=== PATIENT | male | born 1960 | race Caucasian/White ===

== ENCOUNTER 2017-01-04 22:48 | Inpatient (IN) | payer MEDICARE, MEDICAID ==
[~2017-01-04] VITALS: Ht 162.6 cm; Wt 58.5 kg
[2017-01-05] MEDS ORDERED: SODIUM CHLORIDE 0.9% 1,000 ML IV ONE (01:49)
[2017-01-05] MEDS ORDERED: ONDANSETRON HCL 4MG/2ML VIAL IV ONE (02:00)
[2017-01-05] MEDS ORDERED: KETOROLAC 30MG/ML VIAL IV ONE (02:00)
[2017-01-05 02:12] LABS: HEMATOCRIT. 41.3 % (42.0-52.0); HEMOGLOBIN. 13.7 g/dL (14.0-18.0); MEAN CORPUSCULAR HEMOGLOBIN 30.4 pg (28.0-32.0); MEAN CORPUSCULAR VOLUME 91.6 fL (80.0-94.0); MEAN PLATELET VOLUME 7.7 fl (7.4-10.4); PLATELET 249 x1000/uL (130-400); RED BLOOD CELL COUNT 4.51 mill/uL (4.7-6.1); RED CELL DISTRIBUTION WIDTH 14.2 % (11.6-14.6)
[2017-01-05 02:14] LABS: CHLORIDE 107 mEq/L (98-107)
[2017-01-05 02:16] LABS: INR 1.1; PROTHROMBIN TIME 11.9 sec (9.4-11.6)
[2017-01-05 02:22] LABS: CARBON DIOXIDE 28 mEq/L (21-32); ETHANOL BLOOD < 10 mg/dL
[2017-01-05 02:51] LABS: PLATELET ESTIMATE NORMAL
[2017-01-05] MEDS ORDERED: CEFTRIAXONE 2 G PREMIX 50 ML IV NR (03:15)
[2017-01-05] MEDS ORDERED: METRONIDAZOLE 500 MG PREMIX 100 ML IV NR (03:15)
[2017-01-05 03:47] LABS: CLARITY URINE CLEAR (CLEAR); COLOR URINE YELLOW (YELLOW); GLUCOSE URINE NEGATIVE (NEGATIVE); KETONES URINE NEGATIVE (NEGATIVE); LEUKOCYTE ESTERASE URINE 2+ (NEGATIVE); NITRITE URINE POSITIVE (NEGATIVE); OCCULT BLOOD URINE 1+ (NEGATIVE); PH URINE 5.5 (4.5-8.0); PROTEIN URINE TRACE (NEGATIVE); SPECIFIC GRAVITY URINE 1.017 (1.005-1.030); UROBILINOGEN URINE 0.2 E.U./dL (0.2-1.0)
[2017-01-05 04:12] LABS: *AMPHETAMINES SCREEN URINE NEGATIVE (NEGATIVE); *BARBITURATES SCREEN URINE NEGATIVE (NEGATIVE); *BENZODIAZEPINES SCREEN URINE NEGATIVE (NEGATIVE); *COCAINE SCREEN URINE PRESUMTIVE POSITIVE (NEGATIVE); CANNABINOID URINE SCREEN NEGATIVE (NEGATIVE); METHADONE URINE SCREEN NEGATIVE (NEGATIVE); OPIATES URINE SCREEN NEGATIVE (NEGATIVE); PHENCYCLIDINE URINE SCREEN NEGATIVE (NEGATIVE)
[2017-01-05] MEDS ORDERED: MORPHINE SULFATE 4 MG/ML CPJ (NOT FOR IM USE) IV NR (05:30)
[2017-01-05 08:53] VITALS: BP 122/80
[2017-01-05] MEDS ORDERED: CLONIDINE 0.1MG TABLET PO PRN (09:30)
[2017-01-05] MEDS ORDERED: NITROGLYCERIN 0.4MG TABLET SL SL PRN (09:30)
[2017-01-05] MEDS ORDERED: DOCUSATE SODIUM 100MG CAPSULE PO PRN (09:30)
[2017-01-05] MEDS ORDERED: LORAZEPAM 2MG/ML CPJ IV PRN (09:30)
[2017-01-05] MEDS ORDERED: NA PHOS,M-B/NA PHOS,DI-BA ENEMA 118ML PR PRN (09:30)
[2017-01-05] MEDS ORDERED: MAGNESIUM/ALUMINUM HYDROXIDE/SIMETHICONE 30ML UDC PO PRN (09:30)
[2017-01-05] MEDS ORDERED: ONDANSETRON HCL 4MG/2ML VIAL IV PRN (09:30)
[2017-01-05] MEDS ORDERED: DIPHENHYDRAMINE 50MG/ML VIAL IV PRN (09:30)
[2017-01-05] MEDS ORDERED: GUAIFENESIN 200MG/10ML SUGAR FREE UDC PO PRN (09:30)
[2017-01-05] MEDS ORDERED: IPRATROPIUM/ALBUTEROL 0.5-3(2.5)MG/3ML NEB INH PRN (09:30)
[2017-01-05 12:00] VITALS: BP 112/76
[2017-01-05] MEDS ORDERED: PNEUMOCOCCAL 23-VAL P-SAC VAC 0.5 ML IM ONE (12:30)
[2017-01-05] MEDS: LEVOFLOXACIN 500MG PREMIX 100 ML IV SCH (14:24)
[2017-01-05] MEDS: SODIUM CHLORIDE 0.9% 1,000 ML IV SCH ×2 (14:24→19:38)
[2017-01-05] MEDS: ENOXAPARIN 40MG/0.4ML SYR SUBCUT SCH (14:26)
[2017-01-05] MEDS: MORPHINE SULFATE 4 MG/ML CPJ (NOT FOR IM USE) IV PRN ×2 (14:27→17:39)
[2017-01-05 16:00] VITALS: BP 113/81
[2017-01-05 20:00] VITALS: BP 110/68
[2017-01-05] MEDS: TAMSULOSIN HCL 0.4MG SR CAPSULE PO SCH (20:33)
[2017-01-05] MEDS: ASCORBIC ACID 500 MG TABLET PO SCH (20:33)
[2017-01-05] MEDS: ZOLPIDEM TARTRATE 5MG TABLET PO PRN (20:34)
[2017-01-06] VITALS: BP 105/71
[2017-01-06 04:00] VITALS: BP 101/68
[2017-01-06] MEDS: CEFTRIAXONE 1 G PREMIX 50 ML IV SCH (05:40)
[2017-01-06] MEDS: SODIUM CHLORIDE 0.9% 1,000 ML IV SCH ×2 (05:40→14:41)
[2017-01-06 08:00] VITALS: BP 104/72
[2017-01-06] MEDS: ASCORBIC ACID 500 MG TABLET PO SCH ×2 (08:23→20:13)
[2017-01-06] MEDS: TAMSULOSIN HCL 0.4MG SR CAPSULE PO SCH ×2 (08:23→20:13)
[2017-01-06] MEDS: MORPHINE SULFATE 4 MG/ML CPJ (NOT FOR IM USE) IV PRN ×4 (08:23→22:38)
[2017-01-06] MEDS: DUTASTERIDE 0.5MG CAPSULE PO SCH (08:23)
[2017-01-06] MEDS: ACETAMINOPHEN 325MG TABLET PO PRN ×2 (08:24→20:13)
[2017-01-06] MEDS: ENOXAPARIN 40MG/0.4ML SYR SUBCUT SCH (10:43)
[2017-01-06] MEDS: LEVOFLOXACIN 500MG PREMIX 100 ML IV SCH (10:43)
[2017-01-06 12:00] VITALS: BP 144/48
[2017-01-06 14:01] LABS: HEMATOCRIT. 35.8 % (42.0-52.0); HEMOGLOBIN. 11.9 g/dL (14.0-18.0); MEAN CORPUSCULAR HEMOGLOBIN 30.3 pg (28.0-32.0); MEAN CORPUSCULAR VOLUME 90.9 fL (80.0-94.0); MEAN PLATELET VOLUME 8.5 fl (7.4-10.4); PLATELET 230 x1000/uL (130-400); RED BLOOD CELL COUNT 3.93 mill/uL (4.7-6.1); RED CELL DISTRIBUTION WIDTH 14.5 % (11.6-14.6)
[2017-01-06 14:03] LABS: CARBON DIOXIDE 26 mEq/L (21-32); CHLORIDE 104 mEq/L (98-107)
[2017-01-06 16:00] VITALS: BP 107/71
[2017-01-06] MEDS ORDERED: POTASSIUM CHLORIDE 20MEQ TABLET SR PO NR (16:30)
[2017-01-06 20:00] VITALS: BP 110/66
[2017-01-06] MEDS: ZOLPIDEM TARTRATE 5MG TABLET PO PRN (20:13)
[2017-01-06 22:29] LABS: PLATELET ESTIMATE NORMAL
[2017-01-07] VITALS: BP 105/73
[2017-01-07] MEDS: SODIUM CHLORIDE 0.9% 1,000 ML IV SCH ×2 (01:09→14:17)
[2017-01-07 04:00] VITALS: BP 111/76
[2017-01-07] MEDS: CEFTRIAXONE 1 G PREMIX 50 ML IV SCH (05:20)
[2017-01-07 08:00] VITALS: BP 107/69
[2017-01-07] MEDS: ASCORBIC ACID 500 MG TABLET PO SCH ×2 (08:30→20:22)
[2017-01-07] MEDS: DUTASTERIDE 0.5MG CAPSULE PO SCH (08:30)
[2017-01-07] MEDS: TAMSULOSIN HCL 0.4MG SR CAPSULE PO SCH ×2 (08:30→20:23)
[2017-01-07] MEDS: MORPHINE SULFATE 4 MG/ML CPJ (NOT FOR IM USE) IV PRN ×2 (08:31→18:32)
[2017-01-07] MEDS: ACETAMINOPHEN 325MG TABLET PO PRN (08:31)
[2017-01-07] MEDS: LEVOFLOXACIN 500MG PREMIX 100 ML IV SCH (11:03)
[2017-01-07] MEDS: ENOXAPARIN 40MG/0.4ML SYR SUBCUT SCH (11:03)
[2017-01-07 11:17] LABS: HEMOGLOBIN. 11.5 g/dL (14.0-18.0); MEAN CORPUSCULAR HEMOGLOBIN 30.4 pg (28.0-32.0); MEAN CORPUSCULAR VOLUME 90.3 fL (80.0-94.0); MEAN PLATELET VOLUME 8.2 fl (7.4-10.4); PLATELET 250 x1000/uL (130-400); RED BLOOD CELL COUNT 3.77 mill/uL (4.7-6.1); RED CELL DISTRIBUTION WIDTH 14.4 % (11.6-14.6)
[2017-01-07 11:23] LABS: CARBON DIOXIDE 25 mEq/L (21-32); CHLORIDE 105 mEq/L (98-107)
[2017-01-07 12:00] VITALS: BP 102/63
[2017-01-07 13:27] LABS: PLATELET ESTIMATE NORMAL
[2017-01-07 16:00] VITALS: BP 103/57
[2017-01-07 20:00] VITALS: BP 112/74
[2017-01-07] MEDS: ZOLPIDEM TARTRATE 5MG TABLET PO PRN (20:22)
[2017-01-08] MEDS: SODIUM CHLORIDE 0.9% 1,000 ML IV SCH ×3 (00:17→22:01)
[2017-01-08 01:00] VITALS: BP 114/80
[2017-01-08 04:00] VITALS: BP 111/69
[2017-01-08] MEDS: CEFTRIAXONE 1 G PREMIX 50 ML IV SCH (05:19)
[2017-01-08] MEDS: MORPHINE SULFATE 4 MG/ML CPJ (NOT FOR IM USE) IV PRN ×4 (05:23→18:43)
[2017-01-08] MEDS: ENOXAPARIN 40MG/0.4ML SYR SUBCUT SCH (09:36)
[2017-01-08] MEDS: TAMSULOSIN HCL 0.4MG SR CAPSULE PO SCH ×2 (09:36→20:13)
[2017-01-08] MEDS: DUTASTERIDE 0.5MG CAPSULE PO SCH (09:36)
[2017-01-08] MEDS: ASCORBIC ACID 500 MG TABLET PO SCH ×2 (09:44→20:13)
[2017-01-08] MEDS: LEVOFLOXACIN 500MG PREMIX 100 ML IV SCH (12:00)
[2017-01-08 20:00] VITALS: BP 111/71
[2017-01-08] MEDS: ACETAMINOPHEN 325MG TABLET PO PRN (20:14)
[2017-01-08] MEDS: TRAMADOL 50MG TABLET PO PRN (21:03)
[2017-01-08] MEDS: ZOLPIDEM TARTRATE 5MG TABLET PO PRN (21:57)
[2017-01-09] VITALS: BP 123/76
[2017-01-09] MEDS: SODIUM CHLORIDE 0.9% 1,000 ML IV SCH (03:22)
[2017-01-09 04:00] VITALS: BP 119/76
[2017-01-09] MEDS: CEFTRIAXONE 1 G PREMIX 50 ML IV SCH (05:16)
[2017-01-09] MEDS: MORPHINE SULFATE 4 MG/ML CPJ (NOT FOR IM USE) IV PRN (05:17)
[2017-01-09 08:00] VITALS: BP 117/55
[2017-01-09] MEDS: DUTASTERIDE 0.5MG CAPSULE PO SCH (08:25)
[2017-01-09] MEDS: TAMSULOSIN HCL 0.4MG SR CAPSULE PO SCH (08:25)
[2017-01-09] MEDS: TRAMADOL 50MG TABLET PO PRN (08:25)
[2017-01-09] MEDS: ACETAMINOPHEN 325MG TABLET PO PRN (08:26)
[2017-01-09] MEDS: ASCORBIC ACID 500 MG TABLET PO SCH (08:26)
[2017-01-09 10:17] VITALS: BP 115/56
== END 2017-01-09 11:17 | disposition home or self-care (01) | DRG 872 ==
LOC: ER 22:56 → 8WST 01-05 06:17 → ENRESERV 01-05 07:07 → 8WST 01-05 18:17
PROVIDERS: ADMIT Internal Medicine; ATTEND Internal Medicine
DX: A41.9 Sepsis, unspecified organism (principal); I10 Essential (primary) hypertension; N39.0 Urinary tract infection, site not specified; N40.0 Benign prostatic hyperplasia without lower urinary tract symptoms; Z90.49 Acquired absence of other specified parts of digestive tract; Z86.73 Personal history of transient ischemic attack (TIA), and cerebral infarction without residual deficits; R32 Unspecified urinary incontinence
CPT/HCPCS: 36415; 74176; 76870; 80048; 80053; 80305; 81001; 83036; 83605; 83690; 85025; 85610; 87040; 90732; 93306; 93970; 93976; 96361; 96365; 96375; 97162; 99285; G0482; J0696; J1650; J1885; J1956; J2270; J2405; J3490; J7030; A4315

== ENCOUNTER 2017-01-14 11:03 | Emergency (ER) | payer MEDICARE, MEDICAID ==
[~2017-01-14] VITALS: Ht 162.6 cm; Wt 59.0 kg
[2017-01-14] MEDS ORDERED: LEVO250T2 PO (11:12)
[2017-01-14] MEDS ORDERED: TAMS-11 PO (11:12)
[2017-01-14 16:11] VITALS: BP 141/89
== END 2017-01-14 16:30 | disposition home or self-care (01) ==
LOC: ER 11:03
DX: N43.40 Spermatocele of epididymis, unspecified (principal); R03.0 Elevated blood-pressure reading, without diagnosis of hypertension; Z90.89 Acquired absence of other organs; Z86.73 Personal history of transient ischemic attack (TIA), and cerebral infarction without residual deficits
CPT/HCPCS: 99282

== ENCOUNTER 2017-02-08 11:40 | Inpatient (IN) | payer MEDICARE, MEDICAID ==
[~2017-02-08] VITALS: Ht 162.6 cm; Wt 58.5 kg
[~2017-02-08 11:40] MED LIST: LEVO250T2 PO; TAMS-11 PO
[2017-02-08 11:55] VITALS: BP 138/74
[2017-02-08 12:00] VITALS: BP 138/74
[2017-02-08] MEDS ORDERED: IBUP-2030 PO (12:38)
[2017-02-08] MEDS ORDERED: BUPIVACAINE HCL 0.5% (5MG/ML) 50ML ONE (13:31)
[2017-02-08 13:52] LABS: BASOPHILS % 0.4 % (0.0-2.0); EOSINOPHILS % 1.8 % (0.0-5.0); HEMATOCRIT. 36.9 % (42.0-52.0); HEMOGLOBIN. 12.6 g/dL (14.0-18.0); MEAN CORPUSCULAR HEMOGLOBIN 30.7 pg (28.0-32.0); MEAN CORPUSCULAR VOLUME 89.8 fL (80.0-94.0); MEAN PLATELET VOLUME 7.4 fl (7.4-10.4); MONOCYTES % 7.2 % (2.0-8.0); NEUTROPHILS % 58.6 % (40.0-76.0); PLATELET 335 x1000/uL (130-400); RED BLOOD CELL COUNT 4.11 mill/uL (4.7-6.1)
[2017-02-08 13:58] LABS: CARBON DIOXIDE 26 mEq/L (21-32); CHLORIDE 107 mEq/L (98-107)
[2017-02-08] MEDS ORDERED: MIDAZOLAM HCL 2 MG/2 ML VIAL ONE (14:17)
[2017-02-08] MEDS ORDERED: FENTANYL CITRATE/PF 50MCG/ML 2ML VIAL ONE (14:18)
[2017-02-08] MEDS ORDERED: PROPOFOL 200MG/20ML VIAL IV ONE (14:19)
[2017-02-08] MEDS ORDERED: LIDOCAINE HCL 1% 20ML VIAL (Pyxis) INJ ONE (14:19)
[2017-02-08] MEDS ORDERED: SUCCINYLCHOLINE CHLORIDE 200MG/10ML VIAL IV ONE (14:19)
[2017-02-08] MEDS ORDERED: CEFAZOLIN SODIUM 1000MG/VIAL ONE (14:34)
[2017-02-08] MEDS ORDERED: DEXAMETHASONE 4MG/ML 1ML VIAL ONE (14:59)
[2017-02-08] MEDS ORDERED: ONDANSETRON HCL 4MG/2ML VIAL ONE (14:59)
[2017-02-08] MEDS ORDERED: BACITRACIN ZINC 15GM TUBE TOP ONE (15:20)
[2017-02-08] MEDS ORDERED: ONDANSETRON HCL 4MG/2ML VIAL IV PRN (15:45)
[2017-02-08] MEDS ORDERED: MEPERIDINE HCL/PF 25MG/ML CPJ IV PRN (15:45)
[2017-02-08] MEDS ORDERED: SODIUM CHLORIDE 0.9% 1,000 ML IV SCH (16:00)
[2017-02-08] MEDS: HYDROMORPHONE HCL/PF 2MG/ML CPJ IV PRN ×3 (16:25→16:56)
[2017-02-08 18:00] VITALS: BP 138/74
[2017-02-08] MEDS: MORPHINE SULFATE 4 MG/ML CPJ (NOT FOR IM USE) IV PRN ×2 (18:01→22:55)
[2017-02-08 20:00] VITALS: BP 143/86
[2017-02-09] VITALS: BP 147/87
[2017-02-09] MEDS: MORPHINE SULFATE 4 MG/ML CPJ (NOT FOR IM USE) IV PRN ×5 (02:03→21:19)
[2017-02-09 04:00] VITALS: BP 127/84
[2017-02-09 08:00] VITALS: BP 128/78
[2017-02-09 12:00] VITALS: BP 125/78
[2017-02-09] MEDS: LACTATED RINGERS 1,000 ML IV SCH ×2 (12:09→12:11)
[2017-02-09] MEDS: LEVOFLOXACIN 500MG TABLET PO SCH (15:53)
[2017-02-09] MEDS: HYDROCODONE/ACETAMINOPHEN 10/325MG TABLET PO PRN (15:54)
[2017-02-09 16:00] VITALS: BP 127/79
[2017-02-10] VITALS: BP 108/79
[2017-02-10 04:00] VITALS: BP 129/78
[2017-02-10] MEDS: HYDROCODONE/ACETAMINOPHEN 10/325MG TABLET PO PRN (05:06)
[2017-02-10 08:00] VITALS: BP 146/88
[2017-02-10] MEDS: MORPHINE SULFATE 4 MG/ML CPJ (NOT FOR IM USE) IV PRN ×2 (08:32→12:32)
[2017-02-10 12:00] VITALS: BP 114/75
[2017-02-10] MEDS: LEVOFLOXACIN 500MG TABLET PO SCH (12:31)
[2017-02-10 13:22] VITALS: BP 114/75
== END 2017-02-10 13:40 | disposition home health service (06) | DRG 711 ==
LOC: 6EST 11:40
PROVIDERS: ADMIT Urology; ATTEND Urology
PROC: 0VT90ZZ Resection of Right Testis, Open Approach (ICD-10-PCS; principal; 2017-02-08 14:00)
DX: N45.4 Abscess of epididymis or testis (principal); B37.49 Other urogenital candidiasis; N40.0 Benign prostatic hyperplasia without lower urinary tract symptoms; N45.1 Epididymitis; Z86.73 Personal history of transient ischemic attack (TIA), and cerebral infarction without residual deficits; Z87.440 Personal history of urinary (tract) infections
CPT/HCPCS: 36415; 80048; 85025; 87070; 87075; 87077; 87186; 87205; 88305; 93005; C1893; J0330; J0690; J1100; J1170; J2250; J2270; J2405; J2704; J3010; J3490; J7030; J7120; A4315

== ENCOUNTER 2019-09-10 12:09 | Emergency (ER) | payer MEDICARE, MEDICAID ==
[~2019-09-10] VITALS: Ht 160 cm; Wt 62.0 kg
[~2019-09-10 12:09] MED LIST changes: +IBUP-2030 PO
[2019-09-10 12:19] VITALS: BP 139/99
== END 2019-09-10 13:30 | disposition home or self-care (01) ==
LOC: ER 12:09
DX: Z43.6 Encounter for attention to other artificial openings of urinary tract (principal); R32 Unspecified urinary incontinence; R03.0 Elevated blood-pressure reading, without diagnosis of hypertension; Z86.73 Personal history of transient ischemic attack (TIA), and cerebral infarction without residual deficits
CPT/HCPCS: 99282

== ENCOUNTER 2019-09-20 12:35 | Emergency (ER) | payer MEDICARE, MEDICAID ==
[~2019-09-20] VITALS: Ht 160 cm; Wt 61.0 kg
[2019-09-20 12:56] VITALS: BP 146/100
[2019-09-20 14:07] LABS: BASOPHILS % 0.9 % (0.0-2.0); EOSINOPHILS % 1.1 % (0.0-5.0); HEMATOCRIT. 43.5 % (42.0-52.0); HEMOGLOBIN. 14.8 g/dL (14.0-18.0); LYMPHOCYTES % 27.8 % (20.0-50.0); MEAN CORPUSCULAR HEMOGLOBIN 31.8 pg (28.0-32.0); MEAN CORPUSCULAR VOLUME 93.5 fL (80.0-94.0); MEAN PLATELET VOLUME 8.3 fl (7.4-10.4); MONOCYTES % 7.9 % (2.0-8.0); NEUTROPHILS % 62.3 % (40.0-76.0); PLATELET 292 x1000/uL (130-400); RED BLOOD CELL COUNT 4.65 mill/uL (4.7-6.1); RED CELL DISTRIBUTION WIDTH 13.6 % (11.6-14.6)
[2019-09-20 14:12] LABS: CHLORIDE 108 mEq/L (98-107)
== END 2019-09-20 14:10 | disposition left against medical advice (07) ==
LOC: ER 12:35
DX: R33.9 Retention of urine, unspecified (principal); Z46.6 Encounter for fitting and adjustment of urinary device; Z86.73 Personal history of transient ischemic attack (TIA), and cerebral infarction without residual deficits; Z90.49 Acquired absence of other specified parts of digestive tract
CPT/HCPCS: 36415; 80048; 85025; 99283

== ENCOUNTER 2019-10-13 12:54 | Emergency (ER) | payer MEDICARE, MEDICAID ==
[~2019-10-13] VITALS: Ht 167.6 cm; Wt 55.0 kg
[2019-10-13 13:16] VITALS: BP 128/80
== END 2019-10-13 19:24 | disposition left against medical advice (07) ==
LOC: ER 12:54
DX: Z53.21 Procedure and treatment not carried out due to patient leaving prior to being seen by health care provider (principal)

== ENCOUNTER 2022-11-26 16:33 | Emergency (ER) | payer MEDICAID, MEDICARE ==
[~2022-11-26] VITALS: Ht 160 cm; Wt 61.0 kg
[2022-11-26 16:36] VITALS: O2SAT 97
[2022-11-26] MEDS ORDERED: SODIUM CHLORIDE 0.9% 1,000 ML IV ONE (17:00)
[2022-11-26 17:14] LABS: BASOPHILS % 0.5 % (0.0-2.0); HEMATOCRIT. 38.8 % (42.0-52.0); HEMOGLOBIN. 12.9 g/dL (14.0-18.0); LYMPHOCYTES % 20.5 % (20.0-50.0); MEAN CORPUSCULAR HEMOGLOBIN 31.6 pg (28.0-32.0); MEAN CORPUSCULAR HGB CONC 33.2 g/dL (31.0-37.0); MEAN CORPUSCULAR VOLUME 95.2 fL (80.0-94.0); MEAN PLATELET VOLUME 7.4 fl (7.4-10.4); MONOCYTES % 8.6 % (2.0-8.0); NEUTROPHILS % 69.4 % (40.0-76.0); PLATELET 517 x1000/uL (130-400); RED BLOOD CELL COUNT 4.07 mill/uL (4.7-6.1); RED CELL DISTRIBUTION WIDTH 13.9 % (11.6-14.6); WHITE BLOOD COUNT 12.1 x1000/uL (4.5-11.0)
[2022-11-26 17:27] LABS: CHLORIDE 107 mEq/L (98-107); INDEX HEMOLYSI 1 (1-3); INDEX ICTERIC 1 (1-4); INDEX LIPEMIC 1 (1-3); POTASSIUM 3.5 mEq/L (3.5-5.1); SODIUM 135 mEq/L (136-145)
[2022-11-26 17:36] LABS: ALANINE AMINOTRANSFERASE 68 IU/L (13-61); ALBUMIN 3.5 g/dL (3.4-5.0); ASPARTATE AMINOTRANSFERASE 36 IU/L (15-37); BILIRUBIN TOTAL 0.3 mg/dL (0.1-1.0); CALCIUM 8.8 mg/dL (8.5-10.1); CARBON DIOXIDE 26 mEq/L (21-32); GLUCOSE 124 mg/dL (70-105); PROTEIN TOTAL 8.1 g/dL (6.0-8.3); TROPONIN I HIGH SENSITIVITY 5 ng/L (<78); UREA NITROGEN BLOOD 16 mg/dL (7-21)
[2022-11-26 22:00] VITALS: TEMP 98.9
[2022-11-27 06:00] VITALS: BP_SYST 102
[2022-11-27 06:15] VITALS: BP_DIAS 54; PULSE 77; RESP 16
== END 2022-11-27 10:00 | disposition home or self-care (01) ==
LOC: ER 16:33
DX: R42 Dizziness and giddiness (principal); R53.1 Weakness; J44.9 Chronic obstructive pulmonary disease, unspecified; F10.229 Alcohol dependence with intoxication, unspecified; Z86.73 Personal history of transient ischemic attack (TIA), and cerebral infarction without residual deficits; Z90.49 Acquired absence of other specified parts of digestive tract
CPT/HCPCS: 99285; 96360; 70450; 71045; 80053; 85025; 84484; 36415; 93005; J7030

== ENCOUNTER 2023-01-19 13:41 | Emergency (ER) | payer MEDICARE ==
[~2023-01-19] VITALS: Ht 175.3 cm; Wt 84.0 kg
[2023-01-19 13:50] VITALS: O2SAT 99
[2023-01-19] MEDS ORDERED: TETANUS, DIPHTHERIA, PERTUSSIS VAC/PF 0.5ML (>10YR OLD) IM ONE (14:30)
[2023-01-19] MEDS ORDERED: HYDROCODONE/ACETAMINOPHEN 5/325MG TABLET PO ONE (14:30)
[2023-01-19] MEDS ORDERED: BO1 TP (16:15)
[2023-01-20 03:50] VITALS: TEMP 98.8
[2023-01-20 05:30] VITALS: BP 142/106; PULSE 128; RESP 18
[2023-01-20] MEDS ORDERED: FOLI-43 MT (22:01)
[2023-01-20] MEDS ORDERED: MULT-1146 MT (22:01)
[2023-01-20] MEDS ORDERED: FAMO-135 MT (22:01)
== END 2023-01-19 19:52 ==
LOC: ER 14:01
DX: Z86.73 Personal history of transient ischemic attack (TIA), and cerebral infarction without residual deficits (principal); Z90.49 Acquired absence of other specified parts of digestive tract; S01.01XA Laceration without foreign body of scalp, initial encounter; W18.30XA Fall on same level, unspecified, initial encounter; Y93.89 Activity, other specified; Y92.89 Other specified places as the place of occurrence of the external cause; Y99.8 Other external cause status
CPT/HCPCS: 12004; 90471; 90715; 93005; 99285